=== PATIENT | female | born 1975 | race Caucasian/White ===

== ENCOUNTER 2017-03-21 14:05 | Inpatient (IN) | payer OTHER ==
[2017-03-21] MEDS: DEXTROSE 5%-LACTATED RINGERS 1,000 ML IV SCH (14:15)
[2017-03-21] MEDS ORDERED: AMPICILLIN - 100 ML IVPB ONE (14:30)
[2017-03-21 15:07] VITALS: BMI 31.9
[2017-03-21] MEDS ORDERED: TUBERCULIN PPD 5 TU/0.1ML SYRINGE (IN PATIENT USE ONLY) ID ONE (15:45)
[2017-03-21 16:41] LABS: BASOPHIL 0.1 % (0-2.0); EOSINOPHIL 0.1 % (0-4.5); MCH 31.3 pg (25.7-33.7); MCHC 32.8 g/dl (32.0-36.0); MEAN CELL VOLUME 95.5 fl (80-96); NEUTROPHILS 75.8 % (42.8-82.8); PLATELET COUNT 125 K/MM3 (134-434); RDW 14.8 % (11.6-15.6); WHITE BLOOD COUNT 7.9 K/mm3 (4.0-10.0)
[2017-03-21 17:21] LABS: ALBUMIN 2.6 g/dl (3.4-5.0); ALK PHOS 102 U/L (45-117); ANION GAP 10 (8-16); BILIRUBIN,TOTAL 0.4 mg/dL (0.2-1.0); CALCIUM 8.7 mg/dL (8.5-10.1); CO2 22 mmol/L (21-32); CREATININE 0.3 mg/dL (0.55-1.02); GLUCOSE,RANDOM 99 mg/dL (74-106); SGOT/AST 24 U/L (15-37); SGPT/ALT 22 U/L (12-78); TOT PROT 5.9 g/dl (6.4-8.2)
[2017-03-21 17:42] LABS: INR 1.09 (0.82-1.09)
[2017-03-21] MEDS: AMPICILLIN - 100 ML IVPB SCH ×2 (18:30→22:16)
[2017-03-21 18:53] LABS: HIV 1 & 2 AB NEGATIVE; HIV 1 AGp24 NEGATIVE
[2017-03-21] MEDS ORDERED: OXYTOCIN 15 UNITS/ LR 250 ML 250 ML IVPB SCH (21:30)
--- NOTE | 2017-03-21 21:32 | HP ---
Past Medical History - Admission History Source: Patient - Past Medical History ...: 8 ...Para: 6 ...Term: 6 ...: 0 ...Spon : 1 ...Induced : 0 ...Multiple Gestation: 0 ...LMP: 06/11/16 ... Weeks Gestation by Dates: 40.3 ...EDC by Dates: 03/18/17 ...EDC by Sono: 03/17/17 - Past Surgical History Past Surgical History: Yes: None - Smoking History Smoking history: Never smoked Have you smoked in the past 12 months: No - Alcohol/Substance Use Hx Alcohol Use: No Home Medications - Allergies Allergies/Adverse Reactions: Allergies Allergy/AdvReac Type Severity Reaction Status Date / Time ciprofloxacin [From Cipro] Allergy Severe Rash Verified 03/21/17 14:43 ciprofloxacin HCl Allergy Verified 03/21/17 14:43 [From Cipro] - Home Medications Home Medications: Ambulatory Orders Vit/Iron Fumarate/FA [ Tablet] 1 each PO DAILY 03/21/17 Review of Systems - Review of Systems Constitutional: reports: No Symptoms Eyes: reports: No Symptoms HENT: reports: No Symptoms Neck: reports: No Symptoms Cardiovascular: reports: No Symptoms Respiratory: reports: No Symptoms Gastrointestinal: reports: No Symptoms Genitourinary: reports: No Symptoms Breasts: reports: No Symptoms Reported Musculoskeletal: reports: No Symptoms Integumentary: reports: No Symptoms Neurological: reports: No Symptoms Endocrine: reports: No Symptoms Hematology/Lymphatic: reports: No Symptoms Psychiatric: reports: No Symptoms Physical Exam - Maternity Vital Signs: Vital Signs Temperature 98.1 F 03/21/17 21:00 Pulse Rate 69 03/21/17 21:00 Respiratory Rate 20 03/21/17 21:00 Blood Pressure 105/66 03/21/17 21:00 O2 Sat by Pulse Oximetry (%) Constitutional: Yes: Well Nourished, No Distress - Labs Lab Results: CBC, BMP 03/21/17 15:30 03/21/17 15:30 Hemorrhage Risk Assessment - Risk Factors Medium Risk Factors: Yes: Greater than 4 previous births Risk Score: 1 Risk Level: Medium Risk Assessment/Plan [place] [facility] Spontaneous rupture of membranes Plan Pitocin
[2017-03-22] MEDS ORDERED: BUTORPHANOL TARTRATE 1 MG/ML VIAL IVPB ONE (01:00)
[2017-03-22] MEDS ORDERED: PROMETHAZINE HCL 25 MG/1 ML VIAL IVPB ONE (01:00)
[2017-03-22] MEDS ORDERED: D5W-LR W/ 20 UNITS OXYTOCIN 1,000 ML IV ONE (01:40)
--- NOTE | 2017-03-22 01:52 | PN ---
Ante-Partal Exam - Subjective Subjective: Pt with c/o contractions Vital Signs: Vital Signs Temperature 97.9 F 03/22/17 00:00 Pulse Rate 74 03/22/17 00:00 Respiratory Rate 20 03/22/17 00:00 Blood Pressure 116/57 03/22/17 00:00 O2 Sat by Pulse Oximetry (%) Bleeding: No Headache: No Visual changes: No Right upper quadrant pain: No - Contractions Contractions: Yes Regularity: Regular Monitor Mode: External - Exam during Labor Heart Rate: 130 Variability: Moderate Category: II Monitor Accelerations: Present Monitor Decelerations: Variable Exam: Vaginal Dilatation (cm): FD Amniotic Membrane Status: Ruptured Presentation: Vertex Station: -1 - Intrapartum Hemorrhage Risk Risk Score: 1 Risk Level: Medium Risk - Assessment/Plan Assessment/Plan: 2nd Stage active labor plan anticipate vaginal delivery
--- NOTE | 2017-03-22 01:55 | PN ---
Delivery - Delivery Vaginal Delivery: No Problems EBL (cc): 250 Delivery, Single - Stages of Labor Placenta: Yes: Spontaneous - Condition of Infant Gender: Female - [place] Feeding Plan Initial Plan: Elected not to breastfeed exclusively throughout hospitalization
[2017-03-22] MEDS ORDERED: WITCH HAZEL 50% (TUCKS) 40 PAD/JAR PAD TP PRN (01:57)
[2017-03-22] MEDS ORDERED: METHYLERGONOVINE MALEATE 0.2 MG/1 ML AMP IM PRN (01:57)
[2017-03-22] MEDS ORDERED: BENZOCAINE 20% 57 GM BOTTLE TP PRN (01:57)
[2017-03-22] MEDS ORDERED: BENZOCAINE 28 GM HEMORRHOIDAL OINTMENT PR PRN (01:57)
[2017-03-22] MEDS ORDERED: BISACODYL 10 MG SUPP.RECT PR PRN (01:57)
[2017-03-22] MEDS: IBUPROFEN 600 MG TABLET (FP) PO PRN (04:00)
[2017-03-22] MEDS: ACETAMINOPHEN 325 MG TABLET (FP) PO PRN (04:00)
[2017-03-22] MEDS: AMPICILLIN - 100 ML IVPB SCH (06:07)
[2017-03-22] MEDS: DEXTROSE 5%-LACTATED RINGERS 1,000 ML IV SCH (08:28)
[2017-03-23 07:53] LABS: BASOPHIL 0.3 % (0-2.0); EOSINOPHIL 0.9 % (0-4.5); MCH 32.2 pg (25.7-33.7); MCHC 33.5 g/dl (32.0-36.0); MEAN PLT VOLUME 11.2 fl (7.5-11.1); PLATELET COUNT 105 K/MM3 (134-434); RDW 15.1 % (11.6-15.6); WHITE BLOOD COUNT 7.6 K/mm3 (4.0-10.0)
[2017-03-23] MEDS ORDERED: FLU VACC QS2017-18 36MOS UP/PF 60 MCG/0.5 ML SYRINGE IM ONE (10:00)
[2017-03-23] MEDS ORDERED: DIPHTH,PERTUSS(ACELL),TET 0.5 ML DISP.SYRIN IM ONE (10:00)
[2017-03-23] MEDS: AMPICILLIN - 100 ML IVPB SCH ×2 (11:02→18:56)
[2017-03-23] MEDS: ACETAMINOPHEN 325 MG TABLET (FP) PO PRN (20:45)
[2017-03-23] MEDS: IBUPROFEN 600 MG TABLET (FP) PO PRN (20:47)
--- NOTE | 2017-03-23 21:37 | PN ---
Post Progress Note - Subjective Subjective: Pt doing well. Pain controlled. Tolerating diet. VB minimal. Denies CP/SOB/F /C/TAVERAS. No complaints. Type of Delivery: Vital Signs: Vital Signs Temperature 98.1 F 03/23/17 10:00 Pulse Rate 60 03/23/17 10:00 Respiratory Rate 20 03/23/17 10:00 Blood Pressure 113/66 03/23/17 10:00 O2 Sat by Pulse Oximetry (%) Uterus: Yes: Fundus Firm, Fundus below umbilicus Abdomen/GI: Yes: Abdomen soft, Passing flatus, Tolerating PO Lochia: Yes: Rubra Lochia, amount: Small Extremities: Yes: Calves non-tender Activity: Ambulating - Labs Labs: CBC WBC 7.6 K/mm3 (4.0-10.0) 03/23/17 06:50 RBC 3.71 M/mm3 (3.60-5.2) 03/23/17 06:50 Hgb 11.9 GM/dL (10.7-15.3) 03/23/17 06:50 Hct 35.6 % (32.4-45.2) 03/23/17 06:50 MCV 96.0 fl (80-96) 03/23/17 06:50 MCH 32.2 pg (25.7-33.7) 03/23/17 06:50 MCHC 33.5 g/dl (32.0-36.0) 03/23/17 06:50 RDW 15.1 % (11.6-15.6) 03/23/17 06:50 Plt Count 105 K/MM3 (134-434) L 03/23/17 06:50 MPV 11.2 fl (7.5-11.1) H 03/23/17 06:50 Neutrophils % 69.0 % (42.8-82.8) 03/23/17 06:50 Lymphocytes % 24.3 % (8-40) D 03/23/17 06:50 Monocytes % 5.5 % (3.8-10.2) 03/23/17 06:50 Eosinophils % 0.9 % (0-4.5) D 03/23/17 06:50 Basophils % 0.3 % (0-2.0) 03/23/17 06:50 Problem List - Problems (1) Normal vaginal delivery Code(s): O80 - ENCOUNTER FOR FULL-TERM UNCOMPLICATED DELIVERY Assessment/Plan 41 y/o PPD#1 s/p normal - AFVSS - Hgb 11.9 post delivery - regular diet, PO pain meds, routine care
--- NOTE | 2017-03-23 21:39 | DS ---
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: Vital Signs Temperature 98.1 F 03/23/17 10:00 Pulse Rate 60 03/23/17 10:00 Respiratory Rate 20 03/23/17 10:00 Blood Pressure 113/66 03/23/17 10:00 O2 Sat by Pulse Oximetry (%) Labs: CBC, BMP 03/23/17 06:50 03/21/17 15:30 Delivery - Delivery Vaginal Delivery: No Problems, Spontaneous Type of Anesthesia: None Episiotomy/Laceration: None EBL (cc): 250 Delivery, Single - Stages of Labor Date 1st Stage Initiatied: 03/21/17 Time 1st Stage Initiated: 09:00 Date 2nd Stage Initiated: 03/22/17 Time 2nd Stage Initiated: 01:20 Date of Delivery: 03/22/17 Time of Delivery: 01:34 Time Placenta Delivered: 01:40 Placenta: Yes: Spontaneous - Condition of Infant 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 - 1 Minute Total Score: 9 5 Minutes Total Score: 9 - [place] Feeding Plan Initial Plan: Elected not to breastfeed exclusively throughout hospitalization Discharge Summary Reason For Visit: LABOR Current Active Problems Normal vaginal delivery (Acute) Condition: Good - Instructions Diet, Activity, Other Instructions: Physical activity Resume your normal everyday activity as tolerated no heavy lifting or exercise until seen by your surgeon. You may walk unlimited sharon of and climb stairs. You may resume driving the car when you feel safe and comfortable behind the wheel. No sexual activity as instructed. Wound care If you have a bandage, leave it on, and keep dry for 48-72 hours. After that time discard the outer bandage. If they are tapes on the skin under the out of bandage leave them in place. They will peel off in the next 7 to 10 days. Do Not Peel them off. You may shower the day after surgery. If there are tapes present on the skin, you may shower over them. Diet There are no dietary restrictions. Eat healthy, high-fiber foods. Drink 6 to 8 glasses of liquid each day. This will assist in keeping your bowels are regular. Pain management You may take Tylenol or acetaminophen or Ibuprofen (for example, Motrin, Advil etc.) from my pain prescription medication is ordered should be taken as prescribed for moderate to severe pain. Call MD for any of the following: Severe pain not relieved by medication Fever of 101 or higher Excessive bleeding or drainage on dressing Inability to urinate Referrals: Surekha Rdz MD [Staff Physician] - Disposition: HOME - Home Medications Comprehensive Discharge Medication List: Ambulatory Orders One Tablet 1 tab PO DAILY 04/25/14 Ibuprofen [Motrin -] 600 mg PO TID PRN #60 tablet 04/26/14 Vit/Iron Fumarate/FA [ Tablet] 1 each PO DAILY 03/21/17 Ibuprofen [Motrin -] 600 mg PO QID PRN #28 tablet 03/22/17
[2017-03-24 09:55] VITALS: BP 106/60; PULSE 79; TEMP 98.4
== END 2017-03-24 13:18 | disposition home or self-care (01) | DRG 560 ==
LOC: JLDR 14:05 → MERGE 14:05 → J3W 03-22 04:30
PROVIDERS: ADMIT Obstetrics & Gynecology; ATTEND Obstetrics & Gynecology
PROC: 10E0XZZ Delivery of Products of Conception, External Approach (ICD-10-PCS; principal; 2017-03-22)
DX: O80 Encounter for full-term uncomplicated delivery (principal); Z3A.40 40 weeks gestation of pregnancy; Z37.0 Single live birth
CPT/HCPCS: 36415; 59409; 80053; 85025; 85610; 85730; 86593; 86850; 86900; 86901; 87389; 90686; 90715; G0008